=== PATIENT | female | born 1940 | race Caucasian/White ===

== ENCOUNTER 2016-11-29 08:23 | Outpatient (CLI) | payer MEDICARE, OTHER ==
[2016-11-29 09:02] LABS: BASOPHILS % (AUTO) 0.2 %; EOSINOPHILS % (AUTO) 0.8 %; HCT - HEMATOCRIT 42.5 % (37.0-47.0); HGB - HEMOGLOBIN 13.9 g/dL (12.0-16.0); LYMPHOCYTES # (AUTO) 1.8 10^3/uL (1.5-3.5); LYMPHOCYTES % (AUTO) 30.3 %; MEAN CORPUSCULAR HEMOGLOBIN 31.5 pg (27.0-31.0); MEAN CORPUSCULAR HGB CONC 32.7 g/dL (32.0-36.0); MEAN CORPUSCULAR VOLUME 96.6 fL (81.0-99.0); MEAN PLATELET VOLUME 8.7 fL (7.9-10.8); MONOCYTES # (AUTO) 0.4 10^3/uL (0.0-1.0); MONOCYTES % (AUTO) 5.9 %; NEUTROPHILS # (AUTO) 3.8 10^3/uL (1.5-6.6); NEUTROPHILS % (AUTO) 62.8 %; RED CELL DISTRIBUTION WIDTH 13.6 % (12.0-15.0)
[2016-11-29 09:12] LABS: ALBUMIN/GLOBULIN RATIO 1.7 (1.0-2.2); BILIRUBIN,TOTAL 0.9 mg/dL (0.2-1.0); BUN - BLOOD UREA NITROGEN 16 mg/dL (6-20); CALCIUM 9.2 mg/dL (8.5-10.3); CARBON DIOXIDE - CO2 27 mmol/L (21-32); CHLORIDE 104 mmol/L (101-111); CHOL/HDL RATIO 3.2 (<4.4); CHOLESTEROL 158 mg/dL; CREATININE 0.8 mg/dL (0.4-1.0); GFR - MDRD 70 (>89); GLUCOSE 98 mg/dL (70-100); HDL CHOLESTEROL 49 mg/dL; LDL/HDL RATIO 1.6 (<4.4); SODIUM 139 mmol/L (135-145); TOTAL PROTEIN 6.7 g/dL (6.7-8.2); TRIGLYCERIDES 146 mg/dL; VLDL CHOLESTEROL 29 mg/dL
[2016-11-29 09:27] LABS: HEMOGLOBIN A1C 0.6 g/dL
== END 2016-11-29 08:24 | disposition home or self-care (01) ==
LOC: LAB 08:23
PROVIDERS: ATTEND Physician Assistant
DX: I10 Essential (primary) hypertension (principal); R73.9 Hyperglycemia, unspecified; E78.5 Hyperlipidemia, unspecified
CPT/HCPCS: 36415; 80053; 80061; 83036; 85025

== ENCOUNTER 2016-12-02 14:33 | Outpatient (CLI) | payer MEDICARE, OTHER ==
--- NOTE | 2016-12-03 16:26 | Mammography Report ---
DIGITAL SCREENING MAMMOGRAM: 12/02/2016 CLINICAL INDICATION: A 76-year-old with history of bilateral benign biopsies for screening. COMPARISON: 04/2015, 02/2014, 02/2013, 02/2012, 01/2011, 08/2009, 07/2008. TECHNIQUE: Routine CC and MLO projections were obtained of the breasts. FINDINGS: The breasts again demonstrate heterogeneously dense fibroglandular parenchyma bilaterally. Coarse and punctate, typically benign calcifications are present. Postbiopsy changes are stable. No suspicious masses, clustered microcalcifications, or regions of architectural distortion are ident ified. IMPRESSION: BENIGN FINDINGS. RECOMMENDATION: Routine annual screening unless otherwise clinically indicated. BI-RADS category 2, benign findings. STANDARD QUALIFYING STATEMENTS 1. This examination was reviewed with the aid of Computer-Aided Detection (CAD). 2. A negative or benign imaging report should not delay biopsy if clinically suspicious findings are present. Consider surgical consultation if warranted. More than 5% of cancers are not identified by i maging. 3. Dense breasts may obscure an underlying neoplasm. JOB #: [id number] EXT JOB #:[id number]
== END 2016-12-02 14:34 | disposition home or self-care (01) ==
LOC: DI 14:33
PROVIDERS: ATTEND Physician Assistant
DX: Z12.31 Encounter for screening mammogram for malignant neoplasm of breast (principal)
CPT/HCPCS: 77067

== ENCOUNTER 2017-03-04 15:27 | Outpatient (CLI) | payer MEDICARE, OTHER ==
--- NOTE | 2017-03-05 09:50 | XRAY Report ---
TWO VIEW CHEST: 03/04/2017 CLINICAL INDICATION: Cough. COMPARISON: 11/11/2009. FINDINGS: Frontal and lateral views of the chest demonstrate a normal cardiac silhouette. A large hi atal hernia is present. Minimal adjacent atelectasis is seen. No focal infiltrate, effusion, or pneum othorax. IMPRESSION: LARGE HIATAL HERNIA. NO EVIDENCE OF ACUTE CARDIOPULMONARY DISEASE. JOB #: [id number] EXT JOB #:[id number]
--- NOTE | 2017-03-05 10:07 | Ultrasound Report ---
THYROID ULTRASOUND: 03/04/2017 CLINICAL INDICATION: Thyroid asymmetry. TECHNIQUE: Real-time scanning was performed with [employer] static images obtained. FINDINGS: The right lobe measures 4.4 x 1.3 x 1.3 cm, and the left lobe measures 4.3 x 1.4 x 1.0 cm. The isthmus measures 2 mm. A 2 mm cyst is noted in the left lobe. No solid lesion is seen on eith er side. No adenopathy is appreciated. IMPRESSION: NORMAL THYROID ULTRASOUND. JOB #: [id number] EXT JOB #:[id number]
== END 2017-03-04 15:28 | disposition home or self-care (01) ==
LOC: DI 15:27
PROVIDERS: ATTEND Registered Nurse
DX: Q89.2 Congenital malformations of other endocrine glands (principal); R05 Cough
CPT/HCPCS: 71020; 76536

== ENCOUNTER 2017-06-02 10:23 | Outpatient (CLI) | payer MEDICARE, OTHER ==
[2017-06-02 11:19] LABS: CHOL/HDL RATIO 5.2 (<4.4); CHOLESTEROL 257 mg/dL; HDL CHOLESTEROL 49 mg/dL; LDL/HDL RATIO 3.6 (<4.4); TRIGLYCERIDES 156 mg/dL; VLDL CHOLESTEROL 31 mg/dL
== END 2017-06-02 10:24 | disposition home or self-care (01) ==
LOC: LAB 10:23
PROVIDERS: ATTEND Registered Nurse
DX: E78.5 Hyperlipidemia, unspecified (principal)
CPT/HCPCS: 36415; 80061

== ENCOUNTER 2017-09-08 10:14 | Outpatient (CLI) | payer MEDICARE, OTHER ==
[2017-09-08] MEDS ORDERED: SIMETHICONE/SOD BICARB/CIT AC 1 EACH PACKET PO ONE (11:40)
[2017-09-08] MEDS ORDERED: BARIUM SULFATE 135 ML BOTTLE PO ONE (11:40)
[2017-09-08] MEDS ORDERED: BARIUM SULFATE 148 GM POWDER PO ONE (11:40)
--- NOTE | 2017-09-08 12:18 | XRAY Report ---
ESOPHAGRAM: 09/08/2017 COMPARISON: No comparison. INDICATION: Hiatal hernia on plain film. TECHNIQUE: Single and double contrast esophagram is performed with effervescent crystals. FINDINGS: There are severe tertiary contractions. No discrete mucosal abnormalities are demonstrated. There is the suggestion of a distal esophageal stricture, although this is not definitive. There is a hiatal hernia. No gastroesophageal reflux is demonstrated on examination. Valleculae and piriform sinuses appear grossly unremarkable. No diverticulum. IMPRESSION: 1. SEVERE PRESBYESOPHAGUS. 2. HIATAL HERNIA. 3. POSSIBLE DISTAL ESOPHAGEAL STRICTURE. RECOMMEND GI CONSULTATION FOR CONSIDERATION OF ENDOSCOPY. TD: 09/08/2017 12:17 YUAN
== END 2017-09-08 10:15 | disposition home or self-care (01) ==
LOC: DI 10:14
PROVIDERS: ATTEND Registered Nurse
DX: K44.9 Diaphragmatic hernia without obstruction or gangrene (principal); K21.9 Gastro-esophageal reflux disease without esophagitis; K22.8 Other specified diseases of esophagus
CPT/HCPCS: 74220; A9270

== ENCOUNTER 2017-09-12 08:25 | Outpatient (CLI) | payer MEDICARE, OTHER ==
[2017-09-12 09:08] LABS: HB2 TOTAL 14.4 g/dL; HEMOGLOBIN A1C 0.59 g/dL; HEMOGLOBIN A1C % 5.9 % (4.6-6.2)
[2017-09-12 09:15] LABS: ALBUMIN 3.8 g/dL (3.2-5.5); ALBUMIN/GLOBULIN RATIO 1.4 (1.0-2.2); ALKALINE PHOSPHATASE 38 IU/L (42-121); ALT ALANINE AMINOTRANSFERASE 14 IU/L (10-60); AST ASPARTATE AMINOTRANSFERASE 17 IU/L (10-42); BILIRUBIN,TOTAL 0.9 mg/dL (0.2-1.0); BUN - BLOOD UREA NITROGEN 17 mg/dL (6-20); CARBON DIOXIDE - CO2 26 mmol/L (21-32); CHLORIDE 103 mmol/L (101-111); CHOL/HDL RATIO 5.2 (<4.4); CHOLESTEROL 227 mg/dL; CREATININE 0.8 mg/dL (0.4-1.0); GFR - MDRD 70 (>89); GLUCOSE 90 mg/dL (70-100); HDL CHOLESTEROL 44 mg/dL; LDL CHOLESTEROL,CALCULATED 152 mg/dL; LDL/HDL RATIO 3.5 (<4.4); SODIUM 137 mmol/L (135-145); TOTAL PROTEIN 6.6 g/dL (6.7-8.2); VLDL CHOLESTEROL 31 mg/dL
== END 2017-09-12 08:26 | disposition home or self-care (01) ==
LOC: LAB 08:25
PROVIDERS: ATTEND Physician Assistant
DX: I10 Essential (primary) hypertension (principal); E78.5 Hyperlipidemia, unspecified; E07.9 Disorder of thyroid, unspecified; Z13.1 Encounter for screening for diabetes mellitus; R73.01 Impaired fasting glucose
CPT/HCPCS: 36415; 80053; 80061; 82947; 83036; 83721; 84443

== ENCOUNTER 2018-01-01 15:39 | Outpatient (CLI) | payer MEDICARE, OTHER ==
--- NOTE | 2018-01-02 13:28 | Mammography Report ---
Procedure Date: 01/01/2018 Accession Number: [id number] / [id number] Procedure: [facility] - Screening Mammo Dig Bilat CPT Code: FULL RESULT: EXAM: Screening Mammo Dig Bilat DATE: 01/01/2018 3:52 PM CLINICAL HISTORY: 77-year-old with history of benign biopsies for screening TECHNIQUE: Bilateral CC and MLO views were obtained. COMPARISON: 12/02/2016, 05/15/2015, 03/11/2014, 03/19/2013, 03/11/2012, 01/29/2011, 09/05/2009 FINDINGS: The breasts demonstrate heterogeneously dense fibroglandular parenchyma bilaterally. Coarse and punctate, typically benign calcifications are present. Postoperative changes are stable. No suspicious masses, clustered microcalcifications, or regions of architectural distortion are identified. IMPRESSION: Benign findings RECOMMENDATION: Routine annual screening unless otherwise clinically indicated. BIRADS CATEGORY 2: Benign findings STANDARD QUALIFYING STATEMENTS: 1. This examination was reviewed with the aid of Computer-Aided Detection (CAD). 2. A negative or benign imaging report should not delay biopsy if clinically suspicious findings are present. Consider surgical consultation if warrented. More than 5% of cancers are not identified by imaging. 3. Dense breasts may obscure an underlying neoplasm.
== END 2018-01-01 15:40 | disposition home or self-care (01) ==
LOC: DI 15:39
PROVIDERS: ATTEND Registered Nurse
DX: Z12.31 Encounter for screening mammogram for malignant neoplasm of breast (principal)
CPT/HCPCS: 77067

== ENCOUNTER 2018-05-27 08:20 | Outpatient (CLI) | payer MEDICARE, OTHER ==
[2018-05-27 09:16] LABS: ALBUMIN 4.1 g/dL (3.2-5.5); ALBUMIN/GLOBULIN RATIO 1.4 (1.0-2.2); ALKALINE PHOSPHATASE 47 IU/L (42-121); ALT ALANINE AMINOTRANSFERASE 17 IU/L (10-60); AST ASPARTATE AMINOTRANSFERASE 16 IU/L (10-42); BILIRUBIN,TOTAL 0.8 mg/dL (0.2-1.0); BUN - BLOOD UREA NITROGEN 19 mg/dL (6-20); CALCIUM 9.3 mg/dL (8.5-10.3); CARBON DIOXIDE - CO2 29 mmol/L (21-32); CHLORIDE 105 mmol/L (101-111); CHOL/HDL RATIO 4.5 (<4.4); CHOLESTEROL 220 mg/dL; CREATININE 0.9 mg/dL (0.4-1.0); GFR - MDRD 61 (>89); GLUCOSE 91 mg/dL (70-100); HDL CHOLESTEROL 49 mg/dL; LDL CHOLESTEROL,CALCULATED 139 mg/dL; LDL/HDL RATIO 2.8 (<4.4); SODIUM 140 mmol/L (135-145); VLDL CHOLESTEROL 32 mg/dL
[2018-05-27 09:20] LABS: HB2 TOTAL 15.4 g/dL; HEMOGLOBIN A1C 0.63 g/dL; HEMOGLOBIN A1C % 5.9 % (4.6-6.2)
== END 2018-05-27 08:21 | disposition home or self-care (01) ==
LOC: LAB 08:20
PROVIDERS: ATTEND Registered Nurse
DX: E78.5 Hyperlipidemia, unspecified (principal); R73.03 Prediabetes
CPT/HCPCS: 36415; 80053; 80061; 83036; 83721

== ENCOUNTER 2018-12-18 08:40 | Outpatient (CLI) | payer MEDICARE, OTHER ==
[2018-12-18 09:20] LABS: BASOPHILS % (AUTO) 0.4 %; EOSINOPHILS # (AUTO) 0.1 10^3/uL (0.0-0.7); EOSINOPHILS % (AUTO) 1.1 %; HGB - HEMOGLOBIN 14.1 g/dL (12.0-16.0); LYMPHOCYTES % (AUTO) 26.1 %; MEAN CORPUSCULAR HEMOGLOBIN 30.7 pg (27.0-31.0); MEAN CORPUSCULAR HGB CONC 30.8 g/dL (32.0-36.0); MEAN CORPUSCULAR VOLUME 99.6 fL (81.0-99.0); MONOCYTES # (AUTO) 0.5 10^3/uL (0.0-1.0); MONOCYTES % (AUTO) 6.1 %; NEUTROPHILS # (AUTO) 4.9 10^3/uL (1.5-6.6); PLT - PLATELET COUNT 276 10^3/uL (130-450); WHITE BLOOD COUNT 7.5 x10^3/uL (4.8-10.8)
[2018-12-18 09:39] LABS: ALBUMIN 4.3 g/dL (3.2-5.5); ALBUMIN/GLOBULIN RATIO 1.5 (1.0-2.2); ALKALINE PHOSPHATASE 44 IU/L (42-121); ALT ALANINE AMINOTRANSFERASE 18 IU/L (10-60); AST ASPARTATE AMINOTRANSFERASE 17 IU/L (10-42); BUN - BLOOD UREA NITROGEN 24 mg/dL (6-20); CALCIUM 9.7 mg/dL (8.5-10.3); CARBON DIOXIDE - CO2 26 mmol/L (21-32); CHLORIDE 106 mmol/L (101-111); CHOLESTEROL 227 mg/dL; CREATININE 0.8 mg/dL (0.4-1.0); GFR - MDRD 70 (>89); GLUCOSE 98 mg/dL (70-100); HDL CHOLESTEROL 57 mg/dL; LDL CHOLESTEROL,CALCULATED 145 mg/dL; LDL/HDL RATIO 2.5 (<4.4); SODIUM 142 mmol/L (135-145); TOTAL PROTEIN 7.2 g/dL (6.7-8.2); VLDL CHOLESTEROL 25 mg/dL
[2018-12-18 09:40] LABS: HB2 TOTAL 15.1 g/dL; HEMOGLOBIN A1C 0.57 g/dL; HEMOGLOBIN A1C % 5.6 % (4.6-6.2)
[2018-12-18 10:01] LABS: FOLATE 8.12 ng/mL (5.90 - >24.8)
== END 2018-12-18 08:41 | disposition home or self-care (01) ==
LOC: LAB 08:40
PROVIDERS: ATTEND Registered Nurse
DX: I10 Essential (primary) hypertension (principal); R73.03 Prediabetes; D53.1 Other megaloblastic anemias, not elsewhere classified; E78.5 Hyperlipidemia, unspecified
CPT/HCPCS: 36415; 80053; 80061; 82607; 82746; 83036; 83721; 85025